=== PATIENT | male | born 1945 | race Asian ===

== ENCOUNTER → 2017-03-09 | Outpatient (CLI) | payer MEDICARE ==
[~2017-03-09] MED LIST: AMLO10TA2 PO; ASPI500P3 PO; ERGO500017 PO; IBUP200C8 PO; OLME1TAB40 PO; TAMS0.4C2 PO
== END | disposition home or self-care (01) ==
LOC: CFH 15:44
PROVIDERS: ATTEND Internal Medicine
DX: M47.896 Other spondylosis, lumbar region (principal); M48.07 Spinal stenosis, lumbosacral region
CPT/HCPCS: 72110

== ENCOUNTER 2017-03-21 12:01 | Emergency (ER) | payer MEDICARE ==
[2017-03-21] MEDS ORDERED: OMNIPAQUE 350 MG/ML, 100ML BOTTLE ONE (16:10)
[2017-03-22 13:20] LABS: ASPARTATE AMINO TRANSFERASE 47 U/L (15-37); BLOOD UREA NITROGEN 19 mg/dL (7-18)
== END 2017-03-21 18:33 ==
LOC: ED 12:01
DX: R10.32 Left lower quadrant pain (principal)
CPT/HCPCS: 36415; 74177; 80048; 80076; 81003; 83690; 85025; 99285; Q9967; 99284